=== PATIENT | male | born 1990 | race American Indian/Alaskan Native ===

== ENCOUNTER 2017-02-04 15:24 | Emergency (ER) | payer MEDICAID, OTHER ==
[2017-02-04 15:26] VITALS: BP 126/84; PULSE 96; RESP 16; TEMP 97.8; O2SAT 96
[2017-02-04] MEDS ORDERED: Bacitracin 500 Units/gm Oint Foilpak UD TOP ONE (15:50)
[2017-02-04] MEDS ORDERED: Lidocaine 2% Inj (20ml) INFIL ONE (15:50)
[2017-02-04] MEDS ORDERED: Lidocaine 2% Inj (20ml) ONE (16:00)
[2017-02-04] MEDS ORDERED: Bacitracin 500 Units/gm Oint Foilpak UD ONE (16:00)
--- NOTE | 2017-02-04 16:56 | C.PDOC ---
History Of Present Illness 26 y/o male presents to the ED for evaluation of a laceration which he sustained to his right second digit earlier today. Patient states he accidentally injured himself with a razor blade. He denies any other injuries as well as extremity numbness/weakness. Patient is UTD with Tetanus immunization. Time Seen by Provider: 02/04/17 15:42 Chief Complaint (Nursing): Abnormal Skin Integrity History Per: Patient History/Exam Limitations: no limitations Onset/Duration Of Symptoms: Hrs Current Symptoms Are (Timing): Still Present Location Of Injury: Right: Hand (2nd digit ) Quality Of Symptoms: Painful Additional History Per: Patient Past Medical History Reviewed: Historical Data, Nursing Documentation, Vital Signs Vital Signs: Last Vital Signs Temp 97.8 F 02/04/17 15:25 Pulse 96 H 02/04/17 15:25 Resp 16 02/04/17 15:25 BP 126/84 02/04/17 15:25 Pulse Ox 96 02/04/17 18:17 - Medical History PMH: No Chronic Diseases Surgical History: No Surg Hx Family History: States: Unknown Family Hx - Social History Hx Alcohol Use: No Hx Substance Use: No - Immunization History Hx Tetanus Toxoid Vaccination: No Hx Influenza Vaccination: No Hx Pneumococcal Vaccination: No Review Of Systems Except As Marked, All Systems Reviewed And Found Negative. Skin: Positive for: Other (+laceration to right hand, 2nd digit ) Physical Exam - Physical Exam Appears: Non-toxic, No Acute Distress Skin: Other (+2.5cm laceration to the dorsal surface of the base of R 2nd digit ) Head: Atraumatic Eye(s): bilateral: Normal Inspection Oral Mucosa: Moist Neck: Supple Extremity: Normal ROM, Capillary Refill (less than 2 seconds ), No Deformity, No Swelling Pulses: Right Radial: Normal Neurological/Psych: Normal Speech, Normal Cognition, Normal Motor, Normal Sensation Gait: Steady ED Course And Treatment O2 Sat by Pulse Oximetry: 96 (on RA) Pulse Ox Interpretation: Normal Laceration - Laceration Repair right 2nd digit Wound Length (In cm): 2.5 Description Of Wound: Linear Anesthesia: Lidocaine 2% Wound Examination: Irrigated With Saline, No FB With Wound Exploration, No Tendon Injury With Wound Exploration Wound Closure: Suture Suture Technique And Material Used: Interrupted, Nylon (six, 4-0) Wound Complexity: Simple Medical Decision Making Medical Decision Making: Plan: * Bacitracin TOP * Lac repair * reassess and disposition Progress: see lac repair note. Bacitracin TOP applied to affected area. Disposition - Disposition Referrals: [facility] [Outside] Disposition: HOME/ ROUTINE Disposition Time: 16:52 Condition: GOOD Additional Instructions: Keep the wound dry and clean for 2 days. On Saturday open the dressing and then clean twice a day with soap and water and apply bacitracin. Sutures to be removed within 7 days. Prescriptions: Bacitracin Ointment [Bacitracin] 30 gm TOP BID #1 tube Instructions: Laceration (ED) - Clinical Impression Clinical Impression: Finger laceration - PA / STOCK CHECKERER / Resident Statement MD/DO has reviewed & agrees with the documentation as recorded. - Scribe Statement The provider has reviewed the documentation as recorded by the Scribe (Cally Bray) All medical record entries made by the Scribe were at my direction and personally dictated by me. I have reviewed the chart and agree that the record accurately reflects my personal performance of the history, physical exam, medical decision making, and the department course for this patient. I have also personally directed, reviewed, and agree with the discharge instructions and disposition.
== END 2017-02-04 16:59 | disposition home or self-care (01) ==
LOC: C.ER 15:24
DX: S61.210A Laceration without foreign body of right index finger without damage to nail, initial encounter (principal); W45.8XXA Other foreign body or object entering through skin, initial encounter; Y93.89 Activity, other specified; Y92.009 Unspecified place in unspecified non-institutional (private) residence as the place of occurrence of the external cause